=== PATIENT | female | born 1995 | race Caucasian/White ===

== ENCOUNTER 2017-04-11 13:48 | Emergency (ER) | payer OTHER ==
[2017-04-11 15:16] VITALS: BP 116/87
--- NOTE | 2017-04-11 15:20 | UC ---
Shoulder Pain HPI - HPI Summary HPI Summary: complaint of left shoulder that started last night fell backwards through a floor and arm was torqued backwward and popped left shoulder popped back into place constant caching pain any time she lifts her arm up she gets pain in shoulder and entire arm resting lessens the pain taking aleve for pain with some relief - History of Current Complaint Stated Complaint: SHOULDER INJURY Time Seen by Provider: 04/11/17 15:13 Hx Obtained From: Patient - Allergies/Home Medications Allergies/Adverse Reactions: Allergies Allergy/AdvReac Type Severity Reaction Status Date / Time No Known Allergies Allergy Verified 04/11/17 15:10 Home Medications: Home Medications NK [No Home Medications Reported] 04/11/17 [History Confirmed 04/11/17] PMH/Surg Hx/FS Hx/Imm Hx Previously Healthy: Yes - Social History Occupation: Employed Full-time Lives: With Family Smoking Status (MU): Never Smoked Tobacco Review of Systems Constitutional: Negative Skin: Negative Eyes: Negative ENT: Negative Respiratory: Negative Cardiovascular: Negative Gastrointestinal: Negative Genitourinary: Negative Motor: Negative Neurovascular: Negative Musculoskeletal: Other: - left shoulder pain Neurological: Negative Psychological: Negative All Other Systems Reviewed And Are Negative: Yes Physical Exam Triage Information Reviewed: Yes Appearance: No Pain Distress, Well-Nourished Vital Signs Reviewed: Yes Eyes: Positive: Conjunctiva Clear ENT: Positive: Pharynx normal, TMs normal Neck: Positive: No Lymphadenopathy Respiratory: Positive: Lungs clear, Normal breath sounds, No respiratory distress, No accessory muscle use Cardiovascular: Positive: RRR, No Murmur, Pulses Normal Bowel Sounds: Positive: Present Musculoskeletal: Positive: Other: - LUE-No bony deformities, tenderness over acrfull ROM shoulder upon adduction, internal and external rotation. Neurological Exam: Normal Psychological Exam: Normal Skin Exam: Normal Shoulder Course/Dx - Differential Dx/Diagnosis Differential Diagnosis/HQI/PQRI: Fracture (Closed), Rotator Cuff Injury, Sprain , Strain Provider Diagnoses: left shoulder sprain Discharge - Discharge Plan Condition: Stable Disposition: HOME Patient Education Materials: RICE Therapy (ED), Shoulder Pain (ED), Shoulder Sprain (ED) Referrals: Fabian Schofield MD [Primary Care Provider] - Additional Instructions: Increase fluids and rest Take acetaminophen or ibuprofen for fever or pain Please review your discharge instructions. If your symptoms do not improve please call your primary care provider or return to urgent care.
--- NOTE | 2017-04-11 15:52 | RAD ---
INDICATION: Left shoulder injury. TECHNIQUE: 4 views of the left shoulder were obtained. FINDINGS: The bones are in normal alignment. No fracture is seen. Joint spaces appear maintained. IMPRESSION: NO EVIDENCE OF FRACTURE.
== END 2017-04-11 16:23 | disposition home or self-care (01) ==
LOC: UCEAST 13:48
DX: S43.402A Unspecified sprain of left shoulder joint, initial encounter (principal); W13.3XXA Fall through floor, initial encounter; Y93.9 Activity, unspecified; Y92.9 Unspecified place or not applicable; Y99.9 Unspecified external cause status
CPT/HCPCS: 99211; G0463

== ENCOUNTER 2018-04-26 07:51 | Emergency (ER) | payer OTHER ==
[2018-04-26 08:13] VITALS: BP 127/73
--- NOTE | 2018-04-26 08:47 | UC ---
Abdominal Pain Female HPI - History of Current Complaint Chief Complaint: UCAbdominalPain Stated Complaint: STOMACH PAIN Time Seen by Provider: 04/26/18 08:12 Hx Obtained From: Patient Hx Last Menstrual Period: Mirena IUD Onset/Duration: Sudden Onset Severity Initially: Severe - 9 Severity Currently: Moderate - 6 Pain Intensity: 6 Pain Scale Used: 0-10 Numeric Location: Discrete At: RLQ Radiates: Yes Radiates to: LLQ Character: Sharp Aggravating Factor(s): Movement Alleviating Factor(s): Position Associated Signs and Symptoms: Negative: Urinary Symptoms, Vaginal Bleeding, Vaginal Discharge - Risk Factors Ovarian Torsion Risk Factor: Reproductive Age Allergies/Adverse Reactions: Allergies Allergy/AdvReac Type Severity Reaction Status Date / Time No Known Allergies Allergy Verified 04/26/18 08:11 Home Medications: Home Medications Levonorgestrel (Iud) [Mirena IUD] 20 mcg IU ONCE 04/26/18 [History Confirmed ] PMH/Surg Hx/FS Hx/Imm Hx Previously Healthy: Yes Cardiovascular History: Other - NO CAD Other Cardiovascular History: . Other Respiratory History: HAD CHILDHOOD ASTHMA Other GI/ History: NEG - Surgical History Surgical History: None - Family History Known Family History: Positive: Other - NO FHX ASTHMA. NO FHX DM. - Social History Alcohol Use: Rare Substance Use Type: None Smoking Status (MU): Never Smoked Tobacco Review of Systems Constitutional: Negative Skin: Negative, Other - NO RASH Eyes: Negative ENT: Negative Respiratory: Negative Cardiovascular: Negative Gastrointestinal: Abdominal Pain Genitourinary: Negative, Vaginal/Penile Itching Neurovascular: Negative Musculoskeletal: Negative Neurological: Negative Psychological: Negative Is Patient Immunocompromised?: No All Other Systems Reviewed And Are Negative: Yes Physical Exam Triage Information Reviewed: Yes Appearance: Pain Distress Vital Signs: Initial Vital Signs Temp 97.5 F 04/26/18 08:08 Pulse 65 04/26/18 08:08 Resp 16 04/26/18 08:08 BP 127/73 04/26/18 08:08 Pulse Ox 100 04/26/18 08:08 Vital Signs Reviewed: Yes Eye Exam: Normal ENT: Positive: Normal ENT inspection Dental Exam: Normal Neck: Positive: Supple Respiratory: Positive: Lungs clear, Normal breath sounds Cardiovascular: Positive: RRR Abdomen Description: Positive: Other: - TENDER TO PALPATION RLQ AND LLQ Musculoskeletal: Positive: Strength Intact, ROM Intact Neurological Exam: Normal Psychological Exam: Normal Skin Exam: Normal Abd Pain Female Course/Dx - Course Course Of Treatment: I RECOMMENDED THE PATIENT GO DIRECTLY TO THE EMERGENCY DEPARTMENT FOR FURTHER EVALUATION. I SPOKE WITH DR MARK AT THE [facility]. - Differential Dx/Diagnosis Provider Diagnoses: ABDOMINAL PAIN Discharge - Sign-Out/Discharge Documenting (check all that apply): Patient Departure - Discharge Plan Condition: Stable Disposition: HOME-RECOMMEND TO ED Patient Education Materials: Acute Abdominal Pain (ED) Referrals: Fabian Schofield MD [Primary Care Provider] - Additional Instructions: GO DIRECTLY TO THE EMERGENCY DEPARTMENT FOR FURTHER EVALUATION OF YOUR ABDOMINAL PAIN. - Billing Disposition and Condition Condition: STABLE Disposition: Home-Recommend to ED
== END 2018-04-26 08:59 | disposition home health service (06) ==
LOC: UCCORT 07:51
DX: R10.31 Right lower quadrant pain (principal); R10.32 Left lower quadrant pain
CPT/HCPCS: 81003; 84702; 99212; G0463

== ENCOUNTER 2018-11-28 09:00 | Emergency (ER) | payer OTHER ==
[2018-11-28 09:16] VITALS: BP 117/80
--- NOTE | 2018-11-28 10:33 | UC ---
Minor Trauma HPI - HPI Summary HPI Summary: 23 yo WF resents s/p fall x2 yesterday, horse bucked and fell on her left side, no mostly c/o left knee pain but radiates to left calf, ankle and left hip. Denies LOC - History of Current Complaint Chief Complaint: UCLowerExtremity Stated Complaint: LT LEG INJURY Time Seen by Provider: 11/28/18 09:25 Hx Obtained From: Patient, Family/Night Clerk Hx Last Menstrual Period: IUD Onset/Duration: Sudden Onset Severity Initially: Moderate Severity Currently: Moderate Pain Intensity: 7 - Allergies/Home Medications Allergies/Adverse Reactions: Allergies Allergy/AdvReac Type Severity Reaction Status Date / Time No Known Allergies Allergy Verified 11/28/18 09:15 Home Medications: Home Medications Ibuprofen TAB* [Motrin TAB* 600 MG] 600 mg PO Q6H PRN 11/28/18 [History Confirmed 11/28/18] PMH/Surg Hx/FS Hx/Imm Hx Previously Healthy: Yes - Surgical History Surgical History: None - Family History Known Family History: Positive: Other - NO FHX ASTHMA. NO FHX DM. - Social History Alcohol Use: Occasionally Substance Use Type: None Smoking Status (MU): Never Smoked Tobacco Review of Systems All Other Systems Reviewed And Are Negative: Yes - Comments Additional Review of Systems Comments: Constitutional: Negative Skin: Negative Eyes: Negative ENT: Negative Cardiovascular: Negative Respiratory: Negative Gastrointestinal: Negative Genitourinary: Negative Musculoskeletal: see HPI Neurological: Negative Psychological: Normal All Other Systems Reviewed And Are Negative: Yes Physical Exam Triage Information Reviewed: Yes Appearance: No Pain Distress Vital Signs: Initial Vital Signs Temp 36.7 C 11/28/18 09:10 Pulse 88 11/28/18 09:10 Resp 16 11/28/18 09:10 BP 117/80 11/28/18 09:10 Pulse Ox 100 11/28/18 09:10 Eye Exam: Normal ENT: Positive: Normal ENT inspection Neck: Positive: Supple Respiratory: Positive: Lungs clear, Normal breath sounds, Stridor. Negative: Crackles, Rhonchi, Wheezing Cardiovascular: Positive: RRR - S1S2 Abdomen Description: Positive: Nontender Musculoskeletal: Positive: Other: - TTP flavio-patellar area raduates to left calf , ROM intact , NVI Neurological: Positive: Alert Minor Trauma Course/Dx - Course Course Of Treatment: XR of LS spine, left hip, knee, and ankle NEG for fx, Left knee has small infusion likely due to acute injury, RICE, JEWELS, NSAIDS - Differential Dx/Diagnosis Provider Diagnosis: Sprain of knee and leg Discharge - Sign-Out/Discharge Documenting (check all that apply): Patient Departure All imaging exams completed and their final reports reviewed: Yes - Discharge Plan Condition: Stable Disposition: HOME Patient Education Materials: Swollen Knee Joint (ED), Knee Pain (ED) Referrals: Fabian Schofield MD [Primary Care Provider] - - Billing Disposition and Condition Condition: STABLE Disposition: Home
== END 2018-11-28 10:44 | disposition home or self-care (01) ==
LOC: UCEAST 09:00
DX: S83.92XA Sprain of unspecified site of left knee, initial encounter (principal); W19.XXXA Unspecified fall, initial encounter; Y92.9 Unspecified place or not applicable
CPT/HCPCS: 72110; 99212; G0463